=== PATIENT | female | born 1950 | race Hispanic/Latino ===

== ENCOUNTER 2021-09-05 13:54 | Emergency (ER) | payer OTHER, SELFPAY ==
[2021-09-05] VITALS (12 sets, daily range): BP systolic 105–169; BP diastolic 51–72; PULSE 65–783; RESP 18–24; O2SAT 93–98; BMI 30.7
--- NOTE | 2021-09-05 14:00 | DI.RAD.S_ITS ---
PROCEDURE: XR CHEST 1V INDICATIONS: chest pain TECHNIQUE: One view of the chest was acquired. COMPARISON: None. FINDINGS: Surgical changes and devices: None. Lungs and pleura: Lungs are clear. No pleural effusions or pneumothorax. Mediastinum: Mediastinal contours appear normal. Heart size is enlarged. Lucency is noted in the retrocardiac region. Bones and chest wall: No suspicious bony lesions. Overlying soft tissues appear unremarkable. IMPRESSION: No acute pulmonary process. Retrocardiac lucency possibly related to hiatal hernia. No priors are available for comparison. Dictated by: Cheryl Adkins M.D. on 09/05/2021 at 14:44 Approved by: Cheryl Adkins M.D. on 09/05/2021 at 14:47
[2021-09-05 14:04] LABS: Add Manual Diff / Slide Review NO; Basophils Absolute Auto 0 /uL (0-100); Basophils Percent Auto 0.4 % (0-2); Eosinophils Absolute Auto 100 /uL (0-450); Eosinophils Percent Auto 1.3 % (2-4); Hematocrit 37.4 % (36-46); Hemoglobin 12.2 g/dL (12.0-16.0); Lymphocytes Absolute Auto 3200 /uL (1100-4500); Lymphocytes Percent Auto 51.1 % (25-40); Mean Corpuscular HGB Conc 32.6 % (30-36); Mean Corpuscular Hemoglobin 26.2 PG (26-34); Mean Corpuscular Volume 80.4 fL (80-100); Monocytes Absolute Auto 500 /uL (0-900); Monocytes Percent Auto 8.5 % (3-14); Neutrophils Absolute Auto 2400 /uL (1500-7000); Neutrophils Percent Auto 38.7 % (50-75); Platelet Count 388 X10^3/uL (150-400); Red Blood Cell Count 4.65 X10^6/uL (4.0-5.2); White Blood Cell Count 6.3 X10^3/uL (4.5-11.0)
--- NOTE | 2021-09-05 14:09 | ED.SYNCOPE ---
HPI - Syncope General Chief Complaint: Syncope Stated Complaint: syncope / hypotension Time Seen by Provider: 09/05/21 14:00 Source: patient and EMS Mode of arrival: EMS Limitations: no limitations History of Present Illness HPI narrative: 70F nonsmoker with history of hypertension presents by EMS for evaluation of a brief episode of syncope just prior to arrival. She had been in her normal state of health and is visiting locally with a friend to see the 2 lobes. She took her blood pressure medications at about noon and they were walking when she began to feel a bit fatigued and lightheaded. She states this is not necessarily abnormal for her to have a change in her blood pressure when standing upright, she usually will sit down and things resolved. She was likely up in about a bit longer and took longer to sit down. She had a brief syncopal episode while sitting on a bench and on arrival EMS found her blood pressure to be in the 60s. She was given 500 cc bolus that had greatly improved by the time of her arrival. Here she was asymptomatic, denies dizziness or lightheadedness. She has no chest pain or shortness of breath. She denies any recent nausea, vomiting or diarrhea. She denies any fever or chills. Related Data Home Medications Medication Instructions Recorded Confirmed amlodipine 5 mg tablet 5 mg PO DAILY 09/05/21 09/05/21 carvedilol 6.25 mg tablet 6.25 mg PO Q12H 09/05/21 09/05/21 hydrochlorothiazide 12.5 mg tablet 12.5 mg PO QAM 09/05/21 09/05/21 losartan 50 mg tablet 50 mg PO DAILY 09/05/21 09/05/21 Allergies Allergy/AdvReac Type Severity Reaction Status Date / Time [id number] Reductase AdvReac Muscle Pain Verified 09/05/21 14:08 Inhibitor Review of Systems Review of Systems Narrative: GENERAL: Denies chills, fatigue, malaise, fever, sweats. HEENT: Denies sinus pain, ear pain, sore throat, difficulty swallowing, dizziness. RESPIRATORY: Denies dyspnea, cough, wheezing, hemoptysis, sputum. CARDIOVASCULAR: See HPI GASTROINTESTINAL: Denies nausea, vomiting, abdominal pain, diarrhea, constipation, melena. : Denies dysuria, frequency, incontinence, hematuria, urinary retention. MUSCULOSKELETAL: denies weakness, joint pain, or bony pain SKIN: Denies rash, skin lesions, or other NEUROLOGIC: Denies weakness, headache, numbness, change in speech, confusion, seizures, incoordination. PSYCHIATRIC: No concerning psychosocial issues. 12 point review of systems is negative except for those stated above Patient History Social History Smoking Status: Never smoker Smoking Status: Never smoker alcohol intake frequency: 0-2 drinks per day Substance Use Type: does not use Exam Narrative Exam Narrative: GENERAL: [70] year old patient appears stated age. Well-developed patient, in mild distress. GCS 15 HEAD: Atraumatic. Normocephalic. EYES: Pupils equal round and reactive. Extraocular motions intact. No scleral icterus. No injection or drainage. ENT: Nose without bleeding, purulent drainage. Throat without erythema, tonsillar hypertrophy or exudate. Airway patent. NECK: Trachea midline. Non tender CARDIOVASCULAR: Regular rate and rhythm without murmurs, gallops, or rubs. RESPIRATORY: Clear to auscultation. Breath sounds equal bilaterally. No wheezes, rales, or rhonchi. GASTROINTESTINAL: Abdomen soft, non-tender, nondistended. EXTREMITIES: No edema or joint tenderness. BACK: Nontender without deformity or crepitance. No flank tenderness. NEURO: AOx3. SKIN: No rash or erythema of visible areas Initial Vital Signs Initial Vital Signs: Vital Signs Pulse Rate 783 H 09/05/21 14:00 Respiratory Rate 18 09/05/21 14:00 Blood Pressure 132/58 L 09/05/21 14:00 Pulse Oximetry 93 09/05/21 14:00 Course Course Course Narrative: Patient observed for few hours. She is asymptomatic for the duration of her visit. Labs and vitals are very reassuring. She is asymptomatic with orthostatics and ambulates without difficulty. She has a long history of what sounds like orthostatic hypotension in today's response may have been a bit more significant given her increased activity. She is given fluids and is doing quite well. Multiple diagnoses considered including cardiac arrhythmia, dehydration, electrolyte abnormality, pulmonary embolism but these are thought less likely given patient's history of orthostatic hypotension, improvement with fluids, prodromal symptoms among others. She is given extensive return precautions and questions have been answered to her apparent satisfaction Orders Ordered: ED Orders 09/05/21 14:00 XR chest 1V Stat EKG-12 Lead Stat 09/05/21 14:01 Complete Blood Count AUTO DIFF Stat Comprehensive Metabolic Panel Stat Lipase Stat Magnesium Stat Troponin & CK Cardiac Panel Stat 09/05/21 14:28 D Dimer Stat Vital Signs Vital signs: Vital Signs - 8 hr 09/05/21 14:00 09/05/21 14:14 09/05/21 14:30 Pulse Rate 783 H 75 74 Pulse Rate [Orthostatic Lying] Pulse Rate [Orthostatic Sitting] Pulse Rate [Orthostatic Standing] Respiratory Rate 18 Blood Pressure 132/58 L Blood Pressure [Orthostatic Lying] Blood Pressure [Orthostatic Sitting] Blood Pressure [Orthostatic Standing] Pulse Oximetry 93 94 95 09/05/21 14:31 09/05/21 15:00 09/05/21 15:01 Pulse Rate 75 76 76 Pulse Rate [Orthostatic Lying] Pulse Rate [Orthostatic Sitting] Pulse Rate [Orthostatic Standing] Respiratory Rate 20 22 24 Blood Pressure 115/56 L 107/62 Blood Pressure [Orthostatic Lying] Blood Pressure [Orthostatic Sitting] Blood Pressure [Orthostatic Standing] Pulse Oximetry 95 96 95 09/05/21 15:30 09/05/21 15:50 09/05/21 15:51 Pulse Rate 65 74 Pulse Rate [Orthostatic Lying] 73 Pulse Rate [Orthostatic Sitting] 80 Pulse Rate [Orthostatic Standing] 78 Respiratory Rate 18 19 Blood Pressure 105/51 L 109/58 L Blood Pressure [Orthostatic Lying] 109/58 L Blood Pressure [Orthostatic Sitting] 145/66 H Blood Pressure [Orthostatic Standing] 140/65 Pulse Oximetry 96 97 09/05/21 15:54 09/05/21 15:55 09/05/21 15:57 Pulse Rate 77 76 81 Pulse Rate [Orthostatic Lying] Pulse Rate [Orthostatic Sitting] Pulse Rate [Orthostatic Standing] Respiratory Rate 24 24 24 Blood Pressure 169/72 H 145/66 H 140/65 Blood Pressure [Orthostatic Lying] Blood Pressure [Orthostatic Sitting] Blood Pressure [Orthostatic Standing] Pulse Oximetry 97 98 MDM - Syncope Lab Data Result diagrams: 09/05/21 14:01 09/05/21 14:01 Labs: Lab Results 09/05/21 09/05/21 09/05/21 Range/Units 14:01 14:01 14:28 WBC 6.3 (4.5-11.0) X10^3/uL RBC 4.65 (4.0-5.2) X10^6/uL Hgb 12.2 (12.0-16.0) g/dL Hct 37.4 (36-46) % MCV 80.4 (80-100) fL MCH 26.2 (26-34) PG MCHC 32.6 (30-36) % RDW 16.0 H (11.6-14.8) % Plt Count 388 (150-400) X10^3/uL Neut % (Auto) 38.7 L (50-75) % Lymph % (Auto) 51.1 H (25-40) % Sawyer % (Auto) 8.5 (3-14) % Eos % (Auto) 1.3 L (2-4) % Baso % (Auto) 0.4 (0-2) % Neut # (Auto) 2400 (9034-9620) /uL Lymph # (Auto) 3200 (8639-8781) /uL Sawyer # (Auto) 500 (0-900) /uL Eos # (Auto) 100 (0-450) /uL Baso # (Auto) 0 (0-100) /uL D-Dimer 347 H (<230) ng/mL Sodium 134 L (137-145) mmol/L Potassium 3.5 (3.4-5.1) mmol/L Chloride 97 L (98-107) mmol/L Carbon Dioxide 23 (22-32) mmol/L BUN 13 (7-17) mg/dL Creatinine 0.67 (0.52-1.04) mg/dL Estimated GFR > 60.0 (>60) mL/min BUN/Creatinine Ratio 19.4 (6-22) Glucose 172 H (80-110) mg/dL Calcium 8.9 (8.4-10.2) mg/dL Magnesium 2.2 (1.6-2.3) mg/dL Total Bilirubin 0.4 (0.2-1.3) mg/dL AST 33 (14-36) IU/L ALT 26 (<35) IU/L Alkaline Phosphatase 112 (38-126) U/L Total Creatine Kinase 115 (30-135) U/L CK-MB (CK-2) 0.68 (<2.37) ng/mL CK-MB (CK-2) Rel Index 0.6 L (1.5-5.0) % Troponin I < 0.012 (0.01-0.034) ng/mL Total Protein 7.8 (6.3-8.2) g/dL Albumin 4.5 (3.5-5.0) g/dL Globulin 3.3 (1.7-4.1) g/dL Albumin/Globulin Ratio 1.4 (1.0-2.8) Lipase 91 (23-300) U/L Imaging Data Chest x-ray: Radiologist's Impression: [address] [address] XRay Report Signed Patient: Nighat Gamez MR#: [id number] : 1950 Acct:[id number] Age/Sex: 70 / F Date of Service: 09/05/21 Loc: ED Accession Number: [id number] ?? Procedure: XR chest 1V Ordering Provider: Oscar Blas D.O. PROCEDURE:? XR CHEST 1V ? INDICATIONS:? chest pain ? TECHNIQUE:? One view of the chest was acquired.? ? COMPARISON:? None. ? FINDINGS:? ? Surgical changes and devices:? None.? ? Lungs and pleura:? Lungs are clear.? No pleural effusions or pneumothorax.? ? Mediastinum:? Mediastinal contours appear normal.? Heart size is enlarged.? Lucency is noted in the retrocardiac region. ? Bones and chest wall:? No suspicious bony lesions.? Overlying soft tissues appear unremarkable.? ? IMPRESSION:? ? No acute pulmonary process. ? Retrocardiac lucency possibly related to hiatal hernia.? No priors are available for comparison. ? ? Dictated by: Cheryl Adkins M.D. on 09/05/2021 at 14:44 ? ? Approved by: Cheryl Adkins M.D. on 09/05/2021 at 14:47 ? Discharge Plan Departure Patient Disposition: Home Clinical Impression: Syncope due to orthostatic hypotension Instructions: DI for Syncope in Adults (Fainting) Activity Restrictions/Additional Instructions: *You have been diagnosed with [Syncope, likley due to orthostatic hypotension. Your physical exam, response to therapies, labs and imaging are very reassuring. There is no indication for the need for emergent intervention or hospitalization. *What to do: *Please continue to take your regular medications as directed. [] New medication prescriptions sent to your pharmacy: [ ] [ ] New medication written as a paper prescription [ ] No new medications given *Please follow up with your primary care provider in 2-3 days, call for an appointment. Let them know you were seen in the Emergency Department and that we ask that you be seen in follow up. We will electronically transmit a record of today's note if your PCP is in our system *If you do not have a primary care provider please contact the [facility] Resource line at [phone]. They will ask some questions about your medical history and help get you set up with a doctor in the community. *Return to Emergency Department if you should have any new, worsening or concerning symptoms, such as [fever greater than 101 F, shaking chills, worsening pain, persistent vomiting or other bothersome symptoms] Prescriptions: No Action losartan 50 mg Tablet 50 mg PO DAILY 0RF carvedilol 6.25 mg Tablet 6.25 mg PO Q12H 0RF Rx Instructions: must administer with a meal/food amlodipine 5 mg Tablet 5 mg PO DAILY 0RF hydrochlorothiazide 12.5 mg Tablet 12.5 mg PO QAM 0RF
[2021-09-05 14:15] LABS: Alanine Aminotransferase 26 IU/L (<35); Albumin 4.5 g/dL (3.5-5.0); Albumin Globulin Ratio 1.4 (1.0-2.8); Alkaline Phosphatase 112 U/L (38-126); Aspartate Aminotransferase 33 IU/L (14-36); BUN Creatinine Ratio 19.4 (6-22); Bilirubin Total 0.4 mg/dL (0.2-1.3); Blood Urea Nitrogen 13 mg/dL (7-17); Calcium 8.9 mg/dL (8.4-10.2); Carbon Dioxide 23 mmol/L (22-32); Chloride 97 mmol/L (98-107); Creatine Kinase 115 U/L (30-135); Estimated Glomerular Filt Rate > 60.0 mL/min (>60); Globulin 3.3 g/dL (1.7-4.1); Glucose 172 mg/dL (80-110); HEMOLYSIS < 15 (0-50); Lipase 91 U/L (23-300); Magnesium 2.2 mg/dL (1.6-2.3); Potassium 3.5 mmol/L (3.4-5.1); Sodium 134 mmol/L (137-145); Total Protein 7.8 g/dL (6.3-8.2)
[2021-09-05 14:26] LABS: Troponin I < 0.012 ng/mL (0.01-0.034)
[2021-09-05 14:29] LABS: CKMB % Relative Index 0.6 % (1.5-5.0); Creatine Kinase MB 0.68 ng/mL (<2.37)
[2021-09-05 14:36] LABS: D Dimer 347 ng/mL (<230)
== END 2021-09-05 16:22 | disposition home or self-care (01) ==
PROVIDERS: Emergency Provider Emergency Medicine
DX: I95.1 Orthostatic hypotension (principal)
CPT/HCPCS: 71045; 80053; 82550; 82553; 83690; 83735; 84484; 85025; 85379; 93005; 93010; 99283; 99284